=== PATIENT | male | born 1955 | race African-American/Black ===

== ENCOUNTER 2016-02-14 19:38 | Inpatient (IN) | payer MEDICAID ==
[~2016-02-14] VITALS: Ht 180.3 cm; Wt 61.0 kg
[2016-02-14 20:22] LABS: BASOPHILS 0.1 % (0.0-2.0); EOSINOPHILS 0 % (0-7); HEMOGLOBIN 17.1 g/dL (13.5-17.5); IMMATURE GRANULOCYTES 0.1 % (0-5); LYMPHOCYTES 17.3 % (15-50); MCH 32.6 pg (26.0-34.0); MCHC 34.2 g/dL (31.0-37.0); MCV 95.4 fL (80.0-100.0); MEAN PLATELET VOLUME 10.1 fL (7.4-10.4); MONOCYTES 10.9 % (2-11); NEUTROPHILS 71.6 % (40-80); PLATELET COUNT 306 10x3/uL (130-400); RBC 5.24 10x6/uL (4.20-6.10); RDW 13.3 % (11.5-14.5); WBC 8.6 10x3/uL (4.8-10.8)
[2016-02-14 20:26] LABS: APTT 27.1 SECONDS (22.8-39.4); INR 1.08 (0.85-1.17); PROTIME 13.9 SECONDS (11.6-15.0)
[2016-02-14 20:30] LABS: ALBUMIN 3.9 g/dL (3.4-5.0); ANION GAP 16.8 mmol/L (8-16); BILIRUBIN - TOTAL 0.66 mg/dL (0.2-1.3); CALCIUM 9.8 mg/dL (8.5-10.1); CARBON DIOXIDE 26.9 mmol/L (21.0-32.0); CREATININE - SERUM 1.2 mg/dL (0.6-1.3); POTASSIUM - SERUM 4.7 mmol/L (3.5-5.1); PROTEIN - SERUM 8.4 g/dL (6.4-8.2)
[2016-02-14 20:37] LABS: MAGNESIUM - SERUM 2.3 mg/dL (1.8-2.4)
[2016-02-14 22:35] LABS: APPEARANCE CLEAR (CLEAR); BILIRUBIN NEGATIVE (NEGATIVE); COLOR DK YELLOW (YELLOW); GLUCOSE NEGATIVE (NEGATIVE); KETONE SMALL mg/dL (NEGATIVE); LEUKOCYTE ESTERASE NEGATIVE (NEGATIVE); NITRITE NEGATIVE (NEGATIVE); PROTEIN TRACE mg/dL (NEGATIVE); SPECIFIC GRAVITY 1.025 (1.005-1.020); UROBILINOGEN NORMAL (NORMAL)
--- NOTE | 2016-02-15 00:15 | NUR ---
PT ARRIVED ON FLOOR PER STRETCHER FROM ER AT 2345. ALERT/NONVERBAL. TOTAL ASSIST TO TRANSFER FROM STRETCHER TO BED. ACCOMPANIED BY MULTIPLE STAFF. VALLEJO PATENT TO BEDSIDE BAG. PIV TO LFA WITH D5NS @ 75ML/HR AND 1 BANANA BAG TO FINISH FROM ER. ADMISSION ASSESSMENT AND HISTORY COMPLETED. FAMILY CANNOT PROVIDE ANY BACKGROUND DETAILS FOR PT'S MEDICAL HISTORY, EXCEPT THAT HE IS A HEAVY, DAILY DRINKER. PLAN OF CARE INITIATED.
--- NOTE | 2016-02-15 01:00 | NUR ---
REPORT RECIEVED FROM ER THAT THEY TRIED SEVERAL TIMES TO REACH DR SEXTON FROM ER AND HAD NO RETURN CALLS. HOLLY TROUBLE DISPATCHER NOTIFIED AND SAID FOR MED2 TO ATTEMPT AGAIN IN AM.
[2016-02-15 01:03] VITALS: BP 148/93; BMI 26.5
[2016-02-15 02:28] VITALS: BP 154/99
--- NOTE | 2016-02-15 08:06 | NUR ---
INTRODUCED MYSELF TO PT PRIMARY RN FOR TODAYS SHIFT. PT HAS A L.FA PIV PATENT WITH DRSG CDI SWAB CAPS IN USE. CURRENTLY INFUSING D51/2NS @75ML/HR AND BANANA BAG @75ML/HR. PT HAS VALLEJO IN PLACE HANGING TO GRAVITY OFF L.SIDE OF BED, STAT LOC SECURED TO L.INNER THIGH. URINE COLOR HAS PINK TINGE. APPLIED SCDS BILAT. PT HAS WEAK SETTLEMENT PROCESSOR IN L.HAND AND ABLE TO FOLLOW SIMPLE COMMANDS AND LIFT LEFT LEG, HOWEVER R.SIDE COMPLETELY FLACCID. AT BEDSIDE ASSESSING NEURO. PT NONVERBAL, NO CURRENT NEEDS IDENTIFIED AT THIS TIME. WILL CTM.
[2016-02-15 08:10] VITALS: BP 141/89
[2016-02-15 10:44] VITALS: Ht 180.3 cm; Wt 61.0 kg
[2016-02-15 12:14] VITALS: BP 106/76
--- NOTE | 2016-02-15 13:00 | NUR ---
ADDITIONAL INFORMATION COLLECTED FROM FAMILY. ---> BROTHER (ASIF) [phone] SISTER (JUAN ALBERTO) [phone] BROTHER () [phone]. PASSWORD CHOSEN BY OLDEST SIBLING JUAN ALBERTO "[place]" PT IS A VERY HEAVY DRINKER SUN UP TO SUN DOWN, (GIN) AND BEER. PT CURRENT HEAVY SMOKER AT LEAST A PACK A DAY. PT HAS CHRONIC BACK PAIN AND RECIEVES PAIN SHOTS EVERY 3-6 MONTHS FROM . TREATS HTN WITH BP MEDS WHICH PT IS APPARENTLY NONCOMPLIANT HOWEVER BP HAS BEEN STABLE. PT OTHERWISE SEEMS HEALTHY NO PAST MEDICAL HX OF ANY OTHER ISSUES. NUTRITION APPEARS WELL PT IS SEEMINGLY HEALTHY WEIGHT AND LIVES ALONE TAKING CARE OF HIMSELF. WILL CONTINUE TO GATHER MUCH INFORMATION POSSIBLE THROUGHOUT MY SHIFT.
[2016-02-15 14:53] LABS: CHOL - HDL RATIO 3.3 ratio (2.3-4.9)
--- NOTE | 2016-02-15 14:55 | NUR ---
Is the patient Alert and Oriented? No 0 * How many steps to enter\exit or inside your home? UNKNOWN 0 * PCP DR. RODRIGUES 0 * Pharmacy [facility] 0 * Preadmission Environment Home Alone 0 * ADLs Independent 0 * Equipment None 0 * List name and contact numbers for known caregivers / representatives who currently or will assist patient after discharge: SISTER: JUAN ALBERTO RODRIGUEZ [phone] SISTER: MARIAM BARON [phone] 0 * Community resources currently utilized None 0 * Additional services required to return to the preadmission environment? Yes 0 * Can the patient safely return to the preadmission environment? No 0 * Has this patient been hospitalized within the prior 30 days at any hospital? No PATIENT IS UNABLE TO ANSWER QUESTIONS. HIS SISTERS ARE AT THE BEDSIDE. HIS PCP IS DR. RODRIGUES. HE GETS HIS MEDS FROM [facility]. HIS SISTERS STATE HE HAS NEVER HAD HOME HEALTH AND DOES NOT HAVE ANY EQUIPMENT. THERE ARE 6 STEPS TO ENTER HIS APARTMENT. PATIENT MAY NEED REHAB AT DISCHARGE. HIS SISTERS WOULD LIKE REFERRAL TO [facility]AB FOR ACUTE REHAB. IF HE DOES NOT QUALIFY THEY WOULD LIKE SNF FOR REHAB. CM TO FOLLOW.
--- NOTE | 2016-02-15 15:41 | NUR ---
ADMINISTERED ORDERED ASA SUPPOSITORY PTS R.SIDE STILL COMPLETELY FLACCID. PT IS STILL NONVERBAL. OBEYS SOME COMMANDS AND SEEMS TO COMPREHEND SOME SIMPLE COMMANDS OF GRIPPING HIS L.HAND. NO FAMILY PRESENT. REPOSITIONED PT UP IN BED FOR COMFORT. PT HAS VALLEJO PATENT DRAINGING TO COLLECTION BAG OFF L.SIDE OF BED. STAT LOC IN PLACE TO L.INNER THIGH. NO CURRENT NEEDS IDENTIFIED AT THIS TIME. CL IN REACH, BED IN LOWEST, SIDE RAILS X2, DOOR LEFT OPEN AND BUILT IN BED ALARM ON. WILL CPOC.
[2016-02-15 15:54] VITALS: BP 116/87
[2016-02-15 20:00] VITALS: BP 132/85
--- NOTE | 2016-02-15 23:27 | NUR ---
RECIVED ORDER FROM ANTONIO RUST FOR BANNANA BAG AND RATE AT 30ML/HR. BANNANA BAG MIXED UP BY SAVANNAH LOPEZ RN 1MG FOLIC ACID,10ML MULTI VITAMINS 2G MAGNESIUM 100MG THIAMINE ADMIN IN NS 1000CC BAG AND INFUSING AT 30ML/HR NO DISTRESS OBSERVED AT THIS TIME
[2016-02-16] VITALS: BP 140/91
--- NOTE | 2016-02-16 03:20 | NUR ---
PT ASSESSMENT COMLETED AND BEDSIDE SHIFT REPORT RECIVED. PT LAYING IN BED AND IS NON VERBAL PIV INFUSING FLUIDS ORDERED. PT ABLE TO COMMUNICATE THROUGH HAND SQUEEZING ONE YES TWO NO. RESPERATIONS EVEN AND UNLABORED ON ROOM AIR SRX2 BED LOW AND LOCKED WILL MONITOR
[2016-02-16 08:12] VITALS: BP 135/94
[2016-02-16 12:03] VITALS: BP 125/80
[2016-02-16 12:56] LABS: HEMOGLOBIN A1C 5.8 % (4.8-6.0)
[2016-02-16 14:03] LABS: T4 THYROXINE 7.3 ug/dL (4.7-13.3); THYROID STIMULATING HORMONE 1.86 uIU/mL (0.36-3.74)
--- NOTE | 2016-02-16 14:17 | NUR ---
DISCONNECTED PT FROM IV FLUIDS FOR CT TO TAKE HIM TO SCAN. VISITORS AT BEDSIDE. PT RESTING QUIETLY. NO S/S OF DISTRESS OR ANY CURRENT NEEDS. WILL CTM.
--- NOTE | 2016-02-16 15:28 | NUR ---
Rehab Note- Prescreen Order received. The patient has [employer] Insurance & does not have IRF benefits. Thank you for this referral! Tori Arechiga RN Clinical Liaison, [facility]
[2016-02-16 16:22] VITALS: BP 138/96
--- NOTE | 2016-02-16 20:00 | NUR ---
RESTING IN BED. NONVERBAL. WILL FOLLOW NURSE INTENTLY, BUT ATTEMPTS TO COMMUNICATE BY ASKING HIM TO NOD OR SQUEEZE NURSE HAND ARE NOT FOLLOWED. RESPS EVEN/NONLABORED. YONI PATENT TO BEDSIDE DRAIN BAG. IVF D5NS @ 75ML/HR AND BANANA BAG AT 75ML/HR TO LFA. PT CLEAN/DRY AND HAS GOOD SKIN TURGOR. SIDERAILS UP AND CALL LIGHT IN REACH.
[2016-02-16 21:48] VITALS: BP 156/96
[2016-02-17 00:30] VITALS: BP 141/93
--- NOTE | 2016-02-17 02:19 | NUR ---
PT RESTLESS, DOWN IN THE BED. STILL UNABLE TO COMMUNICATE WITH NURSE. PULLED UP /REPOSITIONED AND WITH HEAD OF BED AT 90 DEGREES, PT TOOK A LIBRIUM AND DRANK AN ENTIRE GLASS OF WATER. HIS VALLEJO IS PATENT AND HIS URINE IS BRISA COLOR. WILL INCREASE PO FLUIDS HE CAN TOLERATE.
[2016-02-17 04:30] VITALS: BP 149/99
--- NOTE | 2016-02-17 07:35 | NUR ---
ASSESSMENT DONE. WITHOUT DISTRESS NOTED .
[2016-02-17 08:01] VITALS: BP 147/94
--- NOTE | 2016-02-17 09:43 | NUR ---
IV PATENT. VALLEJO INTACT. CALL LIGHT IN REACH. WILL CONT. PLAN OF CARE.
[2016-02-17 12:00] VITALS: BP 150/101
[2016-02-17 14:00] VITALS: BP 163/108
--- NOTE | 2016-02-17 16:56 | NUR ---
WITHOUT CHANGES OR DISTRESS NOTED AT THIS TIME.
--- NOTE | 2016-02-17 19:03 | NUR ---
LAYING IN BED, AWAKE AND ALERT, NONVERBAL, SKIN WARM AND DRY, RESP UNLABORED, IV PATENT TO LEFT FOREARM, VALLEJO DRAINING TO GRAVITY, FAMILY MEMBER AT BEDSIDE, NO DISTRESS NOTED
[2016-02-17 20:30] VITALS: BP 164/99
--- NOTE | 2016-02-17 23:25 | NUR ---
BUSINESS SERVICES MANAGER AT BEDSIDE TO OBTAIN VITALS, CALL LIGHT IN REACH. WILL CONTINUE WITH PLAN OF CARE.
[2016-02-18 00:30] VITALS: BP 150/103
[2016-02-18 04:30] VITALS: BP 155/105
--- NOTE | 2016-02-18 06:18 | NUR ---
RESTING QUIETLY IN BED, NO CHANGES NOTED
[2016-02-18 06:31] LABS: BASOPHILS 0.4 % (0.0-2.0); EOSINOPHILS 2.4 % (0-7); HEMATOCRIT 44.5 % (42.0-54.0); IMMATURE GRANULOCYTES 0.3 % (0-5); LYMPHOCYTES 26.5 % (15-50); MCH 31.9 pg (26.0-34.0); MCHC 33.7 g/dL (31.0-37.0); MCV 94.7 fL (80.0-100.0); MEAN PLATELET VOLUME 10.3 fL (7.4-10.4); MONOCYTES 15.2 % (2-11); NEUTROPHILS 55.2 % (40-80); PLATELET COUNT 295 10x3/uL (130-400); RDW 12.4 % (11.5-14.5); WBC 7.8 10x3/uL (4.8-10.8)
[2016-02-18 06:52] LABS: CALC OSMOLALITY 278 mosm/kg (275-300); CALCIUM 8.8 mg/dL (8.5-10.1); CHLORIDE - SERUM 105 mmol/L (98-107); CREATININE - SERUM 0.9 mg/dL (0.6-1.3); GLUCOSE 105 mg/dL (74-106); SODIUM 141 mmol/L (136-145); UREA NITROGEN 7 mg/dL (7-18); eGFR NON AFRICAN AMERICAN > 90 mL/min (90-120)
--- NOTE | 2016-02-18 06:55 | NUR ---
RECEIVED REPORT FROM PHARMACY CUSTOMER CARE SPECIALIST NURSE, ELAINE CAPPS. PT IN BED, PARALEGAL SPECIALIST'S AT BEDSIDE TO CHANGE LINEN. PT IN BED, DENIES ANY NEEDS AT THIS TIME. CALL LIGHT IN REACH, NAD NOTED, WILL CONTINUE TO MONITOR.
[2016-02-18 08:00] VITALS: BP 131/93
--- NOTE | 2016-02-18 08:56 | NUR ---
NEW BAG OF FLUIDS HUNG, SUPP TYLENOL ADMINISTERED ORDER. SET UP BREAKFAST FOR PT TO EAT. PT HAVING A LITTLE TROUBLE FOLLOWING COMMANDS. PT IS NON VEBAL. NAD NOTED, CALL LIGHT IN REACH, WILL CONTINUE TO MONITOR.
--- NOTE | 2016-02-18 11:43 | NUR ---
ADMINSITERED PLAVIX ORDER, PT UP TO CHAIR. BOX ALARM ON, PT DENIES ANY NEEDS AT THIS TIME. CALL LIGHT IN REACH, NAD NOTED, WILL CONTINUE TO MONITOR.
[2016-02-18 12:00] VITALS: BP 126/89
--- NOTE | 2016-02-18 12:41 | NUR ---
Nutrition follow-up: Diet: Regular puree with thin liquids PO Intake 100% of meals; pt is a feeder. Labs reviewed Wt:158# Banana bag running @ 75 ml/hr Pt with good po intake at this time. RDN following.
--- NOTE | 2016-02-18 13:08 | NUR ---
Patient Name: DALIA HILL Encounter No: [id number] : 1955 Primary Insurance: [place] PRIVATE OPTIONS EMILI Anticipated DC Date: Planned Disposition: Inpatient Rehab Facility External Planned Provider: [facility] INPATIENT REHAB DCP follow-up note: CM RECEIVED ORDER FOR INPATIENT REHAB PRESCREEN, ATTEMPTED TO SPEAK TO PT WHO WOULD ONLY LOOK AT CM. CM ENCOURAGED PT TO AT LEAST GIVE CM A THUMBS UP OR DOWN TO ANSWER QUESTIONS, HE DID NOT. CM REVIEWED CHART WHICH INDICATED THAT RN-CM EVERRIGHT HAD MET WITH PT/FAMILY LAST WEEK AND FAMILY INDICATED CHOICE OF INPATIENT REHAB AT [facility] AND DID NOT WANT TO CONSIDER LONG TERM FACILITY FOR REHAB UNLESS DENIED FOR INPATIENT AT [facility]. CM CALLED KRISH, NURSE LIAISON FOR [facility], , PROVIDED REFERRAL INFORMATION, FAXED REFERRAL TO [phone]. CM WAITING ADMISSION DETERMINATION FROM [facility] INPATIENT REH[facility]. Guy Hopkins, CASE MANAGEMENT
[2016-02-18 16:00] VITALS: BP 174/111
--- NOTE | 2016-02-18 19:03 | NUR ---
VOMITING LARGE AMOUNTS OF UNDIGESTED FOOD, BED BATH GIVEN WITH LINEN CHANGE, HOB ELEVATED, IV PATENT TO LEFT FOREARM, RIGHT SIDE FLACCID, LEFT WIDE WTIH NOTABLE WEAKNESS, NONVERBAL, SIDE RAILS UP X3, BED ALARM IN USE, WILL MONITOR
[2016-02-18 21:27] VITALS: BP 151/100
[2016-02-19] VITALS: BP 149/97
[2016-02-19 04:00] VITALS: BP 140/99
--- NOTE | 2016-02-19 04:54 | NUR ---
PT LAYING IN BED NO DISTRESS OBSERVED CALL LIGHT IN REACH SRX2 BED LOW AND LOCKED SRX2 WILL MONITOR
--- NOTE | 2016-02-19 05:00 | NUR ---
RESTING QUIETLY IN BED, NO DISTRESS NOTED
[2016-02-19 05:59] LABS: BASOPHILS 0.4 % (0.0-2.0); EOSINOPHILS 2.7 % (0-7); HEMATOCRIT 41.9 % (42.0-54.0); HEMOGLOBIN 14.5 g/dL (13.5-17.5); IMMATURE GRANULOCYTES 0.4 % (0-5); LYMPHOCYTES 27.5 % (15-50); MCH 32.2 pg (26.0-34.0); MCHC 34.6 g/dL (31.0-37.0); MCV 92.9 fL (80.0-100.0); MEAN PLATELET VOLUME 9.7 fL (7.4-10.4); MONOCYTES 10.9 % (2-11); NEUTROPHILS 58.1 % (40-80); PLATELET COUNT 301 10x3/uL (130-400); RBC 4.51 10x6/uL (4.20-6.10); RDW 12.4 % (11.5-14.5); WBC 7.4 10x3/uL (4.8-10.8)
[2016-02-19 06:24] LABS: CALC OSMOLALITY 277 mosm/kg (275-300); CALCIUM 8.8 mg/dL (8.5-10.1); CARBON DIOXIDE 24.1 mmol/L (21.0-32.0); CHLORIDE - SERUM 105 mmol/L (98-107); GLUCOSE 109 mg/dL (74-106); POTASSIUM - SERUM 3.9 mmol/L (3.5-5.1); SODIUM 140 mmol/L (136-145); UREA NITROGEN 7 mg/dL (7-18); eGFR NON AFRICAN AMERICAN 81 mL/min (90-120)
--- NOTE | 2016-02-19 07:15 | NUR ---
RECIEVED REPORT ON PATIENT, PATIENT IS NON VERBAL AT THIS TIME. PATIENT AROUSES TO VOICE. PATIENT R SIDE IS FLACCID AND PATIENT HAS L SIDED WEAKNESS. PER JOHNSON FACE PAIN SCALE PATIENT DOES NOT SEEM TO BE IN PAIN. PATIENT HAS A L FA IV WITH D5 1/2 NS INFUSING AT 75ML/HR. PATIENT IS SR ON MONITOR WITH A RATE OF 93. BED IS LOW AND LOCKED AT THIS TIME. BED ALARM ON. WILL CONT TO MONITOR PATIENT. CPOC
[2016-02-19 08:07] VITALS: BP 119/83
[2016-02-19 08:20] LABS: T3 - FREE 1.9 pg/mL (2.0-4.4)
--- NOTE | 2016-02-19 09:30 | NUR ---
PATIENT FAMILY IS AT BEDSIDE WITH PATIENT, MORNING MEDICATIONS HAVE BEEN GIVEN WITH NO SIGNS OF ASPIRATION NOTED. FAMILY DENIES ANY NEEDS. ASSESSMENT DONE. WILL CONT TO MONITOR PATIENT. CPOC
--- NOTE | 2016-02-19 10:59 | NUR ---
PHYSCIAL THERPY GOT PATIENT UP TO CHAIR. PATIENT AT BEDSIDE. DENIES ANY NEEDS. CPOC
[2016-02-19 12:14] VITALS: BP 135/82
--- NOTE | 2016-02-19 12:30 | NUR ---
AUDIOPROSTHOLOGIST AT BEDSIDE FEEDING PATIENT LUNCH. CPOC
--- NOTE | 2016-02-19 13:06 | NUR ---
OT NOTE: PT MORE ALERT TODAY. MAKING ATTEMPTS TO RECIPROCATE GUESTURES. PT WAS ABLE TO SHAKE HAND WITH L SIDE. YES/NO QUESTIONS ARE STILL INCONSISTENT; PROM TO R UE, REMAINS FLACID. UNABLE TO FOLLOW SIMPLE COMMAND INCLUDING "HOLD UP 2 FINGERS", ETC
--- NOTE | 2016-02-19 15:16 | NUR ---
PATIENT LAYING IN BED, NAD NOTED AT THIS TIME. FAMILY AT BEDSIDE. DENIES ANY NEEDS. WILL CONT TO MONITOR PATIENT, CPOC
[2016-02-19 15:45] VITALS: BP 131/86
--- NOTE | 2016-02-19 17:20 | NUR ---
Patient Name: DALIA HILL Admission Status: ER Accout number: [id number] Admission Date: 02-14-2016 : 1955 Admission Diagnosis:CEREBRAL INFARCTION, UNSPECIFIED Attending: BARRY Current LOS: 5 Anticipated DC Date: Planned Disposition: [facility] FACILITY Primary Insurance: [place] PRIVATE OPTIONS EMILI PLANNED PROVIDER: TO BE DETERMINED Discharge Planning Comments: CM RECEIVED CALL FROM KRISH, NURSE LIAISON FOR [facility], , [facility] WILL NOT ACCEPT PT AND CANNOT MEET PT'S NEEDS. CM INFORMED PT AND CALLED PT'S SISTER, JUAN ALBERTO RODRIGUEZ, , DISCUSSED INPATIENT REHAB OPTIONS WELL [facility] OPTIONS. JUAN ALBERTO DOES NOT WANT PT SENT OUT OF [place] AND WILL REVIEW LIST LEFT BY CM IN PT'S ROOM TONIGHT DURING HER VISIT WITH PT AND LET CM KNOW HER SELECTIONS FOR [facility]AB REFERRALS. CM NOTIFIED PT AND LEFT SNF LISTING ON WINDOW LEDGE IN ROOM FOR FAMILY REVIEW AND SIGNATURE. CM WAITING FAMILY SELECTIONS FOR [facility] RE[facility], CM SHOULD HAVE SELECTIONS FOR REFERRALS TO BE SENT IN THE MORNING, 02-20-16. Machine Stemmer: Guy Hopkins
--- NOTE | 2016-02-19 17:30 | NUR ---
SALES ENABLEMENT CONSULTANT AT BEDSIDE FEEDING PATIENT, PATIENT BED LOW AND LOCKED. CALL LIGHT IN REACH. WILL CONT TO MONITOR PATIENT
[2016-02-19 19:00] VITALS: BP 154/60
--- NOTE | 2016-02-19 19:23 | NUR ---
RECEIVED REPORT, PT SLEEPING, IV-LFA-D5 NS@75, [id number], CALL LIGHT IN REACH, BED LOW, SRX2, BOX ALARM ATTACH
--- NOTE | 2016-02-19 20:06 | NUR ---
GAVE PT COMPLETE BEDBATH AND LINEN CHANGE
[2016-02-20 01:10] VITALS: BP 144/79
--- NOTE | 2016-02-20 01:13 | NUR ---
PT LAYING IN BED EYES CLOSED PT APPERS TO BE SLEEPING NO DISTRESS OBSERVED AT THIS TIME BED LOW AND LOCKED SRX2 CALL LIGHT INR EACH WILL MONITOR
[2016-02-20 04:00] VITALS: BP 156/70
[2016-02-20 06:39] LABS: BASOPHILS 0.6 % (0.0-2.0); EOSINOPHILS 3.9 % (0-7); HEMATOCRIT 40.1 % (42.0-54.0); HEMOGLOBIN 13.5 g/dL (13.5-17.5); IMMATURE GRANULOCYTES 0.3 % (0-5); LYMPHOCYTES 32.2 % (15-50); MCH 31.1 pg (26.0-34.0); MCHC 33.7 g/dL (31.0-37.0); MCV 92.4 fL (80.0-100.0); MEAN PLATELET VOLUME 9.7 fL (7.4-10.4); MONOCYTES 13.5 % (2-11); NEUTROPHILS 49.5 % (40-80); PLATELET COUNT 317 10x3/uL (130-400); RBC 4.34 10x6/uL (4.20-6.10); RDW 12.4 % (11.5-14.5)
[2016-02-20 06:52] LABS: CALC OSMOLALITY 271 mosm/kg (275-300); CALCIUM 8.1 mg/dL (8.5-10.1); CARBON DIOXIDE 24.7 mmol/L (21.0-32.0); CHLORIDE - SERUM 104 mmol/L (98-107); GLUCOSE 103 mg/dL (74-106); POTASSIUM - SERUM 3.6 mmol/L (3.5-5.1); SODIUM 137 mmol/L (136-145); UREA NITROGEN 7 mg/dL (7-18); eGFR NON AFRICAN AMERICAN 81 mL/min (90-120)
--- NOTE | 2016-02-20 07:09 | NUR ---
RECIEVED REPORT ON PATIENT, PATIENT IS ALERT AT THIS TIME. PATIENT IS NON VERBAL BUT IS ANSWERING QUESTIONS BY SHAKING HEAD YES AND NO. PATIENT HAS A L FA IV WITH D5 1/2 NS AT 75ML/HR. PATIENT IS SR ON MONITOR WITH A RATE OF 84. PATIENT BED IS LOW AND LOCKED AT THIS TIME. BOX ALARM IS ON. CALL LIGHT IN REACH. WILL CONT TO MONITOR PATIENT. CPOC
--- NOTE | 2016-02-20 07:19 | NUR ---
RECIEVED REPORT ON PATIENT, PATIENT IS ALERT AT THIS TIME. PATIENT HAS A HX OF A RECENT CVA. PATIENT IN NON VERBAL AT THIS TIME. L SIDED WEKANESS IS NOTED AND R SIDE IS FLACCID. PATIENT IS SR ON MONITOR WITH A RATE OF 84. PATIENT HAS A L FA IV WITH D 5 1/2 NS INFUSING AT 75ML/HR. PATIENT WILL SHAKE HEAD YES AND NO, HE SHAKES HIS HEAD NO AND DENIES ANY NEEDS. WILL CONT TO MONITOR PATIENT. CALL LIGHT IN REACH, BED LOW AND LOCKED. CPOC
[2016-02-20 08:12] VITALS: BP 134/99
--- NOTE | 2016-02-20 10:49 | NUR ---
PHYSICAL THERAPY WORKING WITH PATIENT, PATIENT SITTING UP IN CHAIR. CPOC
--- NOTE | 2016-02-20 11:45 | NUR ---
SPEECH THERAPY AT BEDSIDE WORKING WITH PATIENT. CPOC
[2016-02-20 12:04] VITALS: BP 123/76
--- NOTE | 2016-02-20 13:00 | NUR ---
PATIENT SITTING UP IN BED, FAMILY AT BEDSIDE. DENIES ANY NEEDS. PATIENT SHAKES HEAD NO TO NEEDING ANYTHING. WILL CONT TO MONITOR PATIENT. CPOC
--- NOTE | 2016-02-20 14:45 | NUR ---
Patient Name: DALIA HILL Admission Status: ER Accout number: [id number] Admission Date: 02-14-2016 : 1955 Admission Diagnosis:CEREBRAL INFARCTION, UNSPECIFIED Attending: BARRY Current LOS: 6 Anticipated DC Date: Planned Disposition: [facility] Facility Primary Insurance: [place] PRIVATE OPTIONS EMILI PLANNED EXTERNAL PROVIDER: HELGA HAGEN, SKILLED REHAB BED Discharge Planning Comments: CM MET WITH JUAN ALBERTO MICHAEL, PT'S SISTER, IN ROOM WITH PT. CM REVIEWED LONG-TERM LISTING WITH JUAN ALBERTO WHO SELECTED [facility] FIRST CHOICE AND [facility] SECOND CHOICE. CHOICE LETTER SIGNED. MARY SPOKE TO LORETTA, CLINICAL LIAISON FOR [facility], , PROVIDED REFERRAL INFORMATION. CM FAXED REFERRAL TO LORETTA AT [phone]. LORETTA ARRIVED AT HOSPITAL AFTER LUNCH TO MEET AND EVALUATE PT FOR REHAB ADMISSION. MARY WAITING ADMISSION DETERMINATION FROM [facility] FOR REHAB SERVICES. Packaging Supervisor: Guy Hopkins
--- NOTE | 2016-02-20 14:47 | NUR ---
OT NOTE: PT REMAINS APHASIC WITH NO VERBAL CHANGES NOTED. PT WITH CONTINUED FLACID R UE. YES/NO RESPONSES ARE STILL INCONSISTENT
--- NOTE | 2016-02-20 16:00 | NUR ---
PATIENT SLEEPING AT THIS TIME, NAD NOTED. CHEST RISES AND FALLS EQUALLY. WILL CONT TO MONITOR PATIENT. BED LOW AND LOCKED. BOX ALARM ON. CPOC
[2016-02-20 16:25] VITALS: BP 142/89
--- NOTE | 2016-02-20 18:00 | NUR ---
RISK MANAGEMENT INTERNSHIP AT BEDSIDE ASSITING IN FEEDING PATIENT. BED LOW AND LOCKED. CPOC
--- NOTE | 2016-02-20 19:25 | NUR ---
RECEIVED REPORT, PT LYING GURU IN BED, IV-LFA-D 5 02/10 @ 75, 02-RA, CALL LIGHT IN REACH, BED IS LOW, SRX2, [id number], WILL CONTINUE TO MONITOR
[2016-02-20 20:00] VITALS: BP 146/98
--- NOTE | 2016-02-20 21:14 | NUR ---
ASSISTED THRILL PERFORMER WITH TOTAL BATH/LINEN CHANGED
[2016-02-21] VITALS: BP 165/99
--- NOTE | 2016-02-21 02:26 | NUR ---
LYING IN BED WITH CALL LIGHT IN REACH. WILL CONTINUE WITH PLAN OF CARE.
[2016-02-21 04:00] VITALS: BP 145/65
--- NOTE | 2016-02-21 05:11 | NUR ---
SLEEPING, CALL LIGHT IN REACH, BOX ALARM ATTACH,BED LOW, SRX2
[2016-02-21 06:37] LABS: BASOPHILS 0.2 % (0.0-2.0); EOSINOPHILS 2.4 % (0-7); HEMATOCRIT 42.3 % (42.0-54.0); HEMOGLOBIN 14.3 g/dL (13.5-17.5); IMMATURE GRANULOCYTES 0.2 % (0-5); LYMPHOCYTES 27.1 % (15-50); MCH 31.4 pg (26.0-34.0); MCHC 33.8 g/dL (31.0-37.0); MEAN PLATELET VOLUME 9.7 fL (7.4-10.4); MONOCYTES 12.2 % (2-11); NEUTROPHILS 57.9 % (40-80); PLATELET COUNT 346 10x3/uL (130-400); RBC 4.55 10x6/uL (4.20-6.10); RDW 12.3 % (11.5-14.5); WBC 8.3 10x3/uL (4.8-10.8)
[2016-02-21 07:05] LABS: CALC OSMOLALITY 276 mosm/kg (275-300); CALCIUM 8.8 mg/dL (8.5-10.1); CARBON DIOXIDE 24.4 mmol/L (21.0-32.0); CHLORIDE - SERUM 107 mmol/L (98-107); GLUCOSE 98 mg/dL (74-106); POTASSIUM - SERUM 4.3 mmol/L (3.5-5.1); SODIUM 140 mmol/L (136-145); UREA NITROGEN 8 mg/dL (7-18); eGFR NON AFRICAN AMERICAN 81 mL/min (90-120)
--- NOTE | 2016-02-21 07:48 | NUR ---
PT SITTING UP IN BED SLEEPING NO S/S DISTRESS NOTED. WILL CONTINUE TO MONITOR.
[2016-02-21 08:43] VITALS: BP 149/99
--- NOTE | 2016-02-21 11:57 | NUR ---
PT THREW UP EVERYWHERE IN ROOM. THERAPY GOT PT UP TO CHAIR AND I AM UNSURE IF THAT MADE HIS STOMACH UPSET OR NOT.. ASKED ANTONIO FOR ZOFRAN SHE GAVE OK. ORDERED AND GIVEN. CLEANED UP PT AND PT ROOM. PT CLEAN AND DRY.
[2016-02-21 12:11] VITALS: BP 140/92
--- NOTE | 2016-02-21 13:20 | NUR ---
PT PIV IN LEFT FA INFILTRATED DC WITH CATHETER TIP INTACT. RESITED TO LEFT AC 22G X1 STICK. INFUSING IV FLUIDS WITH NO PROBLEMS.
--- NOTE | 2016-02-21 15:59 | NUR ---
PT SITTING UP IN BED NO S/S DISTRESS NOTED. WILL CONTINUE TO MONITOR.
[2016-02-21 16:00] VITALS: BP 124/91
--- NOTE | 2016-02-21 16:44 | NUR ---
OT NOTE: PT SEEN FOR PROM . HE IS EXHIBITING INCREASED TONE IN R UE, [place]A SHOULDER AND ELBOW. GENTLE PROM. PT REMAINS NON VERBAL AND UNABLE TO FOLLOW VERBAL COMMANDS
--- NOTE | 2016-02-21 19:30 | NUR ---
RESUMED CARE OF PT, [id number] FACIAL EXPRESSION, HAS Bree VALLEJO SIDE FLACCID, ON RA, IV-LAC-D5 1/2 NS@ 75, [id number], CALL LIGHT IN REACH, BED IS LOW, SRX2, WILL CONTINUE TO MONITOR
[2016-02-21 20:00] VITALS: BP 153/100
--- NOTE | 2016-02-21 20:33 | NUR ---
PT VOMITED EVERY WHERE, GAVE TOTAL BATH/BED, GAVE ZOFRAN, WILL CONTINUE TO MONITOR
[2016-02-22] VITALS: BP 136/98
[2016-02-22 04:00] VITALS: BP 129/89
--- NOTE | 2016-02-22 05:03 | NUR ---
CALL LIGHT IN REACH, WILL CONTINUE WITH PLAN OF CARE.
--- NOTE | 2016-02-22 06:19 | NUR ---
RESTING , CALL LIGHT IN REACH, BED IS LOW, SRX2
[2016-02-22 06:50] LABS: BASOPHILS 0.4 % (0.0-2.0); EOSINOPHILS 2.9 % (0-7); HEMATOCRIT 41.2 % (42.0-54.0); HEMOGLOBIN 13.9 g/dL (13.5-17.5); IMMATURE GRANULOCYTES 0.3 % (0-5); LYMPHOCYTES 34.5 % (15-50); MCH 31.6 pg (26.0-34.0); MCHC 33.7 g/dL (31.0-37.0); MCV 93.6 fL (80.0-100.0); MEAN PLATELET VOLUME 9.5 fL (7.4-10.4); MONOCYTES 12.9 % (2-11); PLATELET COUNT 400 10x3/uL (130-400); RDW 12.4 % (11.5-14.5); WBC 6.8 10x3/uL (4.8-10.8)
[2016-02-22 07:32] LABS: CALC OSMOLALITY 277 mosm/kg (275-300); CALCIUM 8.4 mg/dL (8.5-10.1); CARBON DIOXIDE 25.7 mmol/L (21.0-32.0); CHLORIDE - SERUM 105 mmol/L (98-107); GLUCOSE 108 mg/dL (74-106); POTASSIUM - SERUM 3.7 mmol/L (3.5-5.1); SODIUM 140 mmol/L (136-145); UREA NITROGEN 8 mg/dL (7-18); eGFR NON AFRICAN AMERICAN 81 mL/min (90-120)
[2016-02-22 08:55] VITALS: BP 132/96
--- NOTE | 2016-02-22 11:11 | EC ---
PATIENT:DALIA HILL DATE OF SERVICE: 02/14/16 SEX: M MEDICAL RECORD: [id number] DATE OF : [birth year] LOCATION:D.M2 D.212 AGE OF PATIENT: 60 ADMISSION DATE: 02/14/16 REFERRING PHYSICIAN: INTERPRETING PHYSICIAN: DENNY LARSON MD ECHOCARDIOGRAM REPORT ECHO CHARGES 4 ECHO COMPLETE CLINICAL DIAGNOSIS: R MCA INFARCT ASSESS FOR CLOTS ECHOCARDIOGRAPHIC MEASUREMENTS (adult normal given) AC root (d.<3.7cm) 3.6 LV Septum d (<1.2 cm> 1.3 Valve Excursion 1.5 LV Septum (systole) 1.5 Left Atria (s.<4.0cm> 3.6 LVPW d(<1.2cm) 1.0 RV (d.<2.3cm) 2.9 LVPW (sytole) 1.3 LV diastole(<5.6CM) 4.0 MV E-F(>70mm/sec) LV systole 2.6 LVOT Diameter 1.9 MV exc.(>10mm) 1.5 Est.ejection fraction (50-75%) Pericardial Effusion N DOPPLER: LVIT A 65.0 E 56.0 LA RVSP 25 LVOT 97 AOP1/2T Asc. Ao 109 RVOT RA PA AV Gradient Peak 4.8 AV Mean 3.11 AV Area 2.3 MV Gradient Peak 2.0 MV Mean 0.84 MV Area COMMENTS: Correspondence Renew Clerk: Mg SMITH Wood Bucker:Marquez Larson TAPE# PACS DATE OF SERVICE: 02/15/2016 Echocardiogram FINDINGS: 1. Left ventricular chamber size is within normal limits. Left ventricular systolic function is normal. Overall ejection fraction estimated at 55%. 2. Left atrium, right atrium, right ventricle chamber size is within normal limits. Left atrium measures 3.6 cm. 3. Valvular structures have normal structure and motion. ECHOCARDIOGRAM REPORT [id number] DALIA HILL 4. Doppler interrogation only reveals mild tricuspid regurgitation. No other valvular insufficiency or stenosis. Pulmonary systolic pressure is normal estimated at 25 mmHg. 5. No evidence of pericardial effusion or left ventricular thrombus. TRANSINT:[id number] Voice Confirmation ID: [id number] DOCUMENT ID: [id number] DENNY LARSON MD at 1111 CC: [id number] DICTATION DATE: 02/15/16 1157 BASIC COMBATANT SWIMMER: 02/15/16 1246 ADM IN [place] [id number] [id number]
[2016-02-22 12:16] VITALS: BP 137/90
--- NOTE | 2016-02-22 12:32 | NUR ---
Nutrition follow-up: Diet: Regular puree with thin liquids Pt remains nonverbal at this time. PO intake ~75% of meals -> pt has been vomiting yesterday and today Labs reviewed +BM Wt: 158# Waiting placement in Rehab Will continue to provide food choices and honor food preferences within diet restrictions. RDN following.
--- NOTE | 2016-02-22 15:38 | NUR ---
HUNG NEW BAG OF D5 1/2NS INFUSING VIA L.AC PIV WITH DRSG CDI AND SWAB CAPS IN USE. INFUSING @75ML/HR. PT IS RESTING QUIETLY WATCHING TV. RR NONLABORED ON RA. NO S/S OF DISTRESS OR ANY FURTHER NEEDS NOTED AT THIS TIME. CL IN REACH. WILL CPOC.
[2016-02-22 16:56] VITALS: BP 143/98
--- NOTE | 2016-02-22 17:42 | NUR ---
Patient Name: DALIA HILL Encounter No: [id number] : 1955 Primary Insurance: [employer] [place] PRIVATE OPTIONS EMILI Anticipated DC Date: Planned Disposition: [facility] Facility External Planned Provider: HELGA HAGEN SKILLED REHAB BED DCP follow-up note: CM SPOKE TO LORETTA, CLINICAL LIAISON FOR [facility], , WHO ADVISED [facility] IS EV[facility]ATING PT AND WILL CONTACT INSURANCE FOR AUTHORIZATION. CM RECEIVED CALL FROM SHANELLE BURGOS, PT'S INSURANCE PAID SEARCH MARKETING ANALYST WHO REPORTED SHE HAS RECEIVED REQUEST FOR AUTHORIZATION FROM [facility] AND ASKED CM IF PT'S FAMILY HAS CONSIDERED PLACING PT AT [facility] FOR INPATIENT REHAB. CM EXPLAINED THAT CM HAD SPOKEN TO MS. RODRIGUEZ, PT'S SISTER IN ROOM WITH PT AND IT IS CM'S UNDERSTANDING THAT FAMILY WANTS TO KEEP PT IN [place] FOR REHAB SERVICES. SHANELLE BURGOS INFORMED CM THAT SHE HAS A MESSAGE TO MS. RODRIGUEZ AND IS WAITING ON A RETURN CALL. CM WAITING ADMISSION DETERMINATION FROM [facility] FOR REHAB SERVICES WELL INSURANCE AUTHORIZATION FROM PT'S INSURANCE COMPANY. Water Tender: Guy Hopkins
[2016-02-22 20:00] VITALS: BP 139/94
--- NOTE | 2016-02-22 21:10 | NUR ---
REPOSITIONED IN BED FOR COMFORT, BED LOW, SR UP X 2, BED ALARM IN USE.
[2016-02-23] VITALS: BP 133/92
--- NOTE | 2016-02-23 02:06 | NUR ---
PT RESTING WELL WITHOUT C/O OR DISTRESS NOTED. NO NEEDS VOICED. CALL LIGHT WITHIN REACH. WILL CONT TO MONITOR.
[2016-02-23 04:00] VITALS: BP 118/80
--- NOTE | 2016-02-23 07:19 | NUR ---
PT SITTING UP IN BED SLEEPING NO S/S DISTRESS WILL CONTINUE TO MONITOR
[2016-02-23 08:00] VITALS: BP 128/86
[2016-02-23 12:00] VITALS: BP 123/75
[2016-02-23 16:00] VITALS: BP 128/92
--- NOTE | 2016-02-23 18:27 | NUR ---
PT SITTING UP IN BED NO S/S DISTRESS NOTED.
--- NOTE | 2016-02-23 19:38 | NUR ---
RESUMED CARE OF PT, LYING IN BED RESPIRATIONS EVEN AND UNLABORED ON ROOM AIR. 87 SR ON TELEMETRY. LEFT AC INFUSING D5NS @ 75. VALLEJO TO GRAVITY. CALL LIGHT IN REACH. WILL CONTINUE TO MONITOR. SEE NURSE ASSESSMENT.
[2016-02-23 21:13] VITALS: BP 131/87
--- NOTE | 2016-02-23 21:49 | NUR ---
BED BATH AND LINENS CHANGED. VOMITTED, ZOFRAN 4MG IVP. CALL LIGHT IN REACH. WILL CONTINUE TO MONITOR.
[2016-02-24 00:43] VITALS: BP 127/88
--- NOTE | 2016-02-24 01:12 | NUR ---
LYING IN BED, CALL LIGHT IN REACH. BED ALARM ON. WILL CONTINUE TO MONITOR.
[2016-02-24 05:05] VITALS: BP 129/79
[2016-02-24 08:00] VITALS: BP 134/88
--- NOTE | 2016-02-24 11:00 | NUR ---
ALERT AND ORIENTED X4. USES NONVERBAL COMMUNICATION. PEN AND PAPER BROUGHT TO ROOM. UNABLE TO SPEAK. RT SIDE MINIMAL MOVEMENT. SHAKES HEAD YES TO FEELING WHEN TOUCHED. PT ASSIST TO CHAIR. DENIES SOB OR PAIN. FAMILY AT BEDSIDE. SINUS RHYTHM 78bpm ON TELEMETRY. VALLEJO DRAINING BY GRAVITY. CHAIR LOCKED. CALL LIGHT IN REACH. CONTINUE PLAN OF CARE AND SAFETY PRECAUTION.
[2016-02-24 12:00] VITALS: BP 122/75
--- NOTE | 2016-02-24 15:58 | NUR ---
RESTING IN BED. FAMILY AT BEDSIDE. ABLE TO EXTEND RT ARM. DRESSING PLACED OVER RT ELBOW SORE. DENIES PAIN OR SOB. SINUS RHYTHM ON TELEMETRY. BED LOCKED AND LOW. CALL LIGHT IN REACH. TWO SIDERAILS UP.
[2016-02-24 16:00] VITALS: BP 121/81
[2016-02-24 19:00] VITALS: BP 137/78
--- NOTE | 2016-02-24 19:37 | NUR ---
RESUMED CARE OF PT, LYING QUIETLY IN BED, IV-LAC-D5 NS@ 75, HAS YONI, [id number], CALL LIGHT IN REACH, BED IS LOW, SRX2, BOX ALARM IS ON
--- NOTE | 2016-02-24 20:38 | NUR ---
LATE ENTRY 02/23/16 CM RECEIVED A MESSAGE FROM ANTONIO WOODRUFF APN, THAT PT'S FAMILY WAS AT THE BEDSIDE AND HAD QUESTIONS FOR CM. CM VISITED W/ PATIENT' SISTER, MS RODRIGUEZ, AND OTHER FAMILY MEMBERS AT THE BEDSIDE. MS RODRIGUEZ HAD QUESTIONS REGARDING REFERRALS. SHE WANTED TO KNOW IF REFERRAL HAD BEEN MADE TO [facility]. SHE STATED [facility] WAS HER FIRST CHOICE. CM ADVISED I COULD NOT CONFIRM [facility] HAD BEEN CONSIDERING THIS PATIENT. ADVISED I WOULD COMMUNICATE TO PT'S WEEKDAY CM FOR F/U. CM ALSO ADVISED THAT SHE VISIT BOTH FACILITIES. ADVISED SHE COULD VISIT THE WEEKEND BUT ADMINISTRATIVE STAFF WOULD NOT BE AVAILABLE. CM ALSO ADVISED THAT THE PATIENT'S [employer] OPERATOR HAD LEFT A MSG AND THE SISTER NEEDED TO CONTACT SHANELLE BURGOS BC/BS CM. ADVISED THAT [facility] MAY NOT BE AN IN-NETWORK FACILITY BUT INSURANCE CM COULD ANSWER THAT QUESTION. PLAN IS FOR SISTER TO CONTACT MS BURGOS. SHE ALSO STATED SHE WOULD CONSIDER VISITING FACILITIES. SHE HAD RESEARCHED THE FACILITIES ON THE INTERNET.
[2016-02-25] VITALS: BP 142/86
--- NOTE | 2016-02-25 01:34 | NUR ---
PT SLEEPING, CALL LIGHT IN REACH, BED IS LOW, SRX2, BOX ALARM IS ON
--- NOTE | 2016-02-25 02:38 | NUR ---
LYING IN BED WITH EYES CLOSED, CALL LIGHT IN REACH. WILL CONTINUE WITH PLAN OF CARE.
[2016-02-25 04:00] VITALS: BP 138/79
[2016-02-25 08:00] VITALS: BP 125/81
[2016-02-25 09:05] VITALS: BP 131/89
--- NOTE | 2016-02-25 09:43 | NUR ---
Patient Name: DALIA HILL Encounter No: [id number] : 1955 Primary Insurance: [employer] PRIVATE OPTIONS EMILI Anticipated DC Date: Planned Disposition: Intermediate Facility External Planned Provider: [facility] DCP follow-up note: CM REVIEWED CHART NOTES FROM WEEKEND, FAMILY HAS CHANGED MIND AND WANTS [facility] FIRST CHOICE FOR REHAB. CM CALLED [facility], , SPOKE TO [place] AND PROVIDED REFERRAL INFORMATION, FAXED REFERRAL TO [facility] AT [phone]. CM FAXED UPDATED REFERRAL INFORMATION TO [facility], . CM WAITING ADMISSION DETERMINATION FROM [facility] AND [facility] INSURANCE AUTHORIZATION FROM [employer] PRIVATE OPTION. Guy Hopkins, CASE MANAGEMENT
--- NOTE | 2016-02-25 09:56 | NUR ---
Patient Name: DALIA HILL Encounter No: [id number] : 1955 Primary Insurance: [employer] PRIVATE OPTIONS EMILI Anticipated DC Date: Planned Disposition: [facility] Facility External Planned Provider: [facility], SKILLED REHAB BED DCP follow-up note: CM RECEIVED CALL FROM [place], CLINICAL LIAISON OF [facility]; [facility] HAS ACCEPTED PT AND IS WAITING ON AUTHORIZATION FROM PT'S INSURANCE COMPANY. [facility] HAS ACCEPTED PT; CM WAITING ADMISSION DETERMINATION FROM [facility] INSURANCE AUTHORIZATION FROM [employer] PRIVATE OPTION FOR REHAB SERVICES AT EITHER FACILITY. Guy Hopkins, CASE MANAGEMENT
--- NOTE | 2016-02-25 11:00 | NUR ---
ALERT AND ORIENTED X4. USES NONVERBAL COMMUNICATION. PHYSICAL THERAPY ASSIST OOB TO CHAIR. SINUS RHYTHM 84bpm ON TELEMETRY. LT AC IV INFILTRATED. DC LT AC IV TIP INTACT. DENIES PAIN OR SOB. CHAIR LOCKED. CALL LIGHT IN REACH. CONTINUE PLAN OF CARE AND SAFETY PRECAUTIONS.
[2016-02-25 11:59] VITALS: BP 120/58; BP 126/85
--- NOTE | 2016-02-25 14:48 | NUR ---
Patient Name: DALIA HILL Encounter No: [id number] : 1955 Primary Insurance: [employer] PRIVATE OPTIONS EMILI Anticipated DC Date: Planned Disposition: Long Term Facility External Planned Provider: [facility], SKILLED REHAB BED DCP follow-up note: CM RECEIVED CALL FROM SHANELLE BURGOS, PT'S WELFARE MANAGER WHO REPORTS THAT SHE HAS NEGOTIATED RATE FOR PT'S REHAB AT [facility] AND PT MAY ENTER SNF. CM RECEIVED CALL FROM JOCELIN OF [facility], , WHO REPORTS THEY WILL ACCEPT PT ONCE FAMILY HAS COMPLETED ADMISSION PAPERWORK. CM PROVIDED CELL PHONE NUMBER FOR JUAN ALBERTO RODRIGUEZ, PT'S SISTER, TO JOCELIN. A SHORT TIME LATER, JOCELIN REPORTED SHE HAS CONTACTED JUAN ALBERTO RODRIGUEZ WHO CANNOT SIGN LEGALS UNTIL TOMORROW. JOCELIN WILL CONTINUE TO ENCOURAGE JUAN ALBERTO TO COMPLETE ADMISSION PAPERWORK TODAY, HOWEVER, THE FACILITY MUST HAVE SIGNED ADMISSION PAPERS TO ACCEPT PT. FAMILY PLANS TO SIGN ADMISSION PAPERS ON 02-26-16 FOR PT TO ADMIT TO [facility]. INSURANCE HAS AUTHORIZED REHAB SERVICES AT [facility]. [facility] TO NOTIFY CM WHEN FAMILY COMPLETES ADMISSION PAPERS AND FACILITY CAN ACCEPT. FOR DISCHARGE ON 02-25-15 AFTER FAMILY SIGNS LEGALS, FAX DISCHARGE INFORMATION TO [phone]. NURSE REPORT TO BE CALLED TO [facility] AT [phone]. PT TO TRANSPORT VIA [facility]. Guy Hopkins, CASE MANAGEMENT
--- NOTE | 2016-02-25 15:06 | NUR ---
IV access-#22 introcan inserted in left hand for IV access. Ebony Bill RN
--- NOTE | 2016-02-25 15:34 | NUR ---
RESTING IN BED WATCHING TV. IV RESITE LT H. IV FLUIDS CONTINUED ORDERED. VALLEJO DRAINING BY GRAVITY. TUBING SECURED TO INNER THIGH. DENIES SOB OR PAIN. CONTINUE PLAN OF CARE AND SAFETY PRECAUTIONS.
[2016-02-25 15:46] VITALS: BP 134/87
--- NOTE | 2016-02-25 19:30 | NUR ---
RESUMED CARE OF PT, R.SIDE FLACCID, IV-L.HAND-D5NS @50, [id number], DRESSING TO R.ELBOW, HAS YONI, CALL LIGHT IN REACH, BED IS LOW, SRX2, WILL CONTINUE TO MONITOR
[2016-02-26] VITALS: BP 127/73
--- NOTE | 2016-02-26 02:24 | NUR ---
PT LAYING IN BED NO DISTRESS OBSERVED CALL LIGHT IN REACH SRX2 BED LOW AND LOCKED WILL MONITOR
[2016-02-26 04:00] VITALS: BP 136/97
[2016-02-26 07:46] VITALS: BP 136/90
[2016-02-26] MEDS ORDERED: PLAVIX75 MG PO (11:14)
[2016-02-26] MEDS ORDERED: LISINOPRIL5 MG PO (11:14)
[2016-02-26] MEDS ORDERED: ASPIRIN325 MG PO (11:14)
[2016-02-26] MEDS ORDERED: PRAVASTATIN SOD10 MG PO (11:14)
--- NOTE | 2016-02-26 11:23 | NUR ---
Patient Name: DALIA HILL Encounter No: [id number] : 1955 Primary Insurance: [employer] EMILI Anticipated DC Date: 02-26-2016 Planned Disposition: [facility] Facility External Planned Provider: : [facility], SKILLED REHAB BED DCP follow-up note: CM RECEIVED CALL FROM JOCELIN OF [facility], PT'S SISTER, MRS. RODRIGUEZ HAS SIGNED LEGALS AND IS MEETING WITH JOCELIN NOW; AND THEY ARE READY TO ACCEPT PT NOW. CM SPOKE TO BEDSIDE NURSE WHO ADVISED PT IS SAFE FOR [facility] TRANSPORT TO REHAB. [place] ARR[facility]ED [facility] FOR APPROXIMATELY 1500 TODAY. CM FAXED DISCHARGE INFORMATION TO [facility] AT [phone]. NURSE REPORT TO BE CALLED TO [facility] AT [phone]. [facility] TO FIRE PREVENTION OFFICER PT AT 1500 HOURS TODAY. Guy Hopkins
[2016-02-26 11:37] VITALS: BP 120/84
--- NOTE | 2016-02-26 12:54 | NUR ---
OT NOTE: PERFORMED PROM ON THIS DATE. PT WITH DECREASED TONE NOTED TODAY. MUCH LESS THAN LAST WEEK. PT EASILY RANGED WHILE IN SITTING POSITION. PT REMAINS UNABLE TO COMMUNICATE AND UNABLE TO FOLLOW 1 STEP COMMANDS. NO AROM NOTED AT THIS TIME
--- NOTE | 2016-02-26 16:42 | NUR ---
REPORT CALLED TO LORRAINE AT [facility] [phone]. TRANSPORT VAN ARRIVE. ASSIST IN WHEELCHAIR. REMAIN FREE FROM INJURY.
--- NOTE | 2016-02-27 15:30 | DS ---
PATIENT:DALIA HILL :[birth year] MEDICAL RECORD: [id number] DISCHARGE SUMMARY ADMISSION DATE: 02/14/16 DISCHARGE DATE: 02/26/16 DATE OF ADMISSION: 02/14/2016 DATE OF DISCHARGE: 02/26/2016 ADMITTING DIAGNOSES: 1. Acute cerebrovascular accident. 2. Alcohol abuse. 3. Nicotine dependence with withdrawal. 4. Hypertension. 5. Chronic back pain. HOSPITAL COURSE: This is a patient of Dr. Steward who was admitted with diagnoses as outlined above. Details are well-outlined in the history of the present illness, H&P. All events, lab procedures, diagnostic testing were well documented in the records. The patient was admitted. Dr. Foster was consulted with neurology. His recommendations were followed. He was felt to have a large left MCA infarct clinically, known hypertension. Further workup included echo and EF was 55%, no thrombus. Carotid Dopplers were done. CTA was recommended. CTA angio showed left internal carotid artery with 67% luminal stenosis. Dr. Wetzel was consulted for cardiovascular surgical recommendations. He felt the patient at some point need a left carotid endarterectomy, recommended Plavix for now and will do the CEA further out. Speech therapy was consulted. He had no overt signs and symptoms of aspiration with pureed and thin liquids. He was fed his meals. Low dose SUNITA inhibitor was added for blood pressure control. Rehabilitation was consulted. He is accepted today to [facility]. Today, he is afebrile, vital signs stable, blood pressure 136/90, on sinus rhythm on the monitor. He will be discharged to rehabilitation. Please refer to med rec. Dr. Wetzel is planning a carotid endarterectomy in the future. Greater than 30 minutes was spent on this discharge. DISCHARGE DIAGNOSES: 1. Acute cerebrovascular accident. 2. Alcohol abuse. 3. Nicotine dependence with withdrawal. 4. Hypertension. 5. Left carotid artery disease. TRANSINT:[id number] Voice Confirmation ID: [id number] DOCUMENT ID: [id number] Dictated By: ANTONIO WOODRUFF RN I have interviewed/examined the above patient and agree with these documented findings. DISCHARGE SUMMARY REPORT [id number] DALIA HILL,CONNIE ULRICH at 1530 at 1554 CC: [id number] DICTATION DATE: 02/26/16 1608 COUPLING MACHINE OPERATOR: 02/26/16 190 DIS IN 02/26/16 [facility] [address] [facility] [place], [facility]
== END 2016-02-26 16:43 | DRG 64 ==
LOC: D.ER 19:38 → D.M2 22:34
PROVIDERS: Emergency Medicine; ADMIT Family Medicine Adult Medicine
DX: I63.232 Cerebral infarction due to unspecified occlusion or stenosis of left carotid arteries (principal); R40.2212 Coma scale, best verbal response, none, at arrival to emergency department; F17.203 Nicotine dependence unspecified, with withdrawal; G81.91 Hemiplegia, unspecified affecting right dominant side; R47.01 Aphasia; R53.1 Weakness; F10.10 Alcohol abuse, uncomplicated; R40.2352 Coma scale, best motor response, localizes pain, at arrival to emergency department; R40.2132 Coma scale, eyes open, to sound, at arrival to emergency department

== ENCOUNTER 2016-03-29 03:03 | Inpatient (IN) | payer MEDICAID ==
[2016-03-29] VITALS (8 sets, daily range): BP systolic 98–129; BP diastolic 63–94; Ht 182.9 cm; Wt 76.3 kg
[~2016-03-29] VITALS: Ht 182.9 cm; Wt 76.3 kg
[~2016-03-29 03:03] MED LIST: ASPIRIN325 MG PO; LISINOPRIL5 MG PO; PLAVIX75 MG PO; PRAVASTATIN SOD10 MG PO
[2016-03-29 04:58] LABS: BASOPHILS 0.3 % (0.0-2.0); EOSINOPHILS 0.9 % (0-7); HEMOGLOBIN 14.5 g/dL (13.5-17.5); IMMATURE GRANULOCYTES 0.1 % (0-5); LYMPHOCYTES 29.2 % (15-50); MCHC 33.7 g/dL (31.0-37.0); MCV 91.9 fL (80.0-100.0); NEUTROPHILS 61.5 % (40-80); PLATELET COUNT 355 10x3/uL (130-400); RBC 4.68 10x6/uL (4.20-6.10); RDW 12.6 % (11.5-14.5); WBC 7.8 10x3/uL (4.8-10.8)
[2016-03-29 05:12] LABS: APTT 29.7 SECONDS (22.8-39.4); INR 1.02 (0.85-1.17); PROTIME 13.2 SECONDS (11.6-15.0)
[2016-03-29 05:21] LABS: ALBUMIN 3.3 g/dL (3.4-5.0); ALKALINE PHOSPHATASE 105 U/L (46-116); ALT (SGPT) 43 U/L (10-68); AMYLASE - SERUM 113 U/L (25-115); BILIRUBIN - TOTAL 0.23 mg/dL (0.2-1.3); CALC OSMOLALITY 276 mosm/kg (275-300); CALCIUM 9.5 mg/dL (8.5-10.1); CARBON DIOXIDE 26.5 mmol/L (21.0-32.0); CHLORIDE - SERUM 104 mmol/L (98-107); GLUCOSE 118 mg/dL (74-106); LIPASE 164 U/L (73-393); PROTEIN - SERUM 7.7 g/dL (6.4-8.2); SODIUM 139 mmol/L (136-145); UREA NITROGEN 8 mg/dL (7-18); eGFR NON AFRICAN AMERICAN 81 mL/min (90-120)
[2016-03-29 05:22] LABS: TROPONIN-I < 0.017 ng/mL (0.000-0.060)
--- NOTE | 2016-03-29 08:10 | NUR ---
PT ARRIVED TO UNIT ACCOMPANIED BY HOSPITAL STAFF. HOOKED UP TO ICU MONITORS. VSS. NO FEVER. UNABLE TO ASSESS ORIENTATION BECAUSE PATIENT IS NON-VERBAL. HE DOES NOD HIS HEAD APPROPRAITELY WHEN ASKED YES/NO QUESTIONS. FOLLOWS COMMANDS. PERRLA 4MM BRISK. RIGHT ARM CONTRACTURE. LEFT ARM WEAKNESS. RIGHT LEG FLACCID/STIFF. LEFT LEG WEAKNESS. DOES NOT RESPOND TO STIMULI WHEN TOUCHED ON HIS LEFT SIDE. CLEAR LUNG SOUNDS. ROOM AIR. S1S2 NOTED, RADIAL AND PEDAL PULSES PALP. NSR ON MONITOR. ACTIVE BOWEL SOUNDS X4. INCONTINENT OF URINE, USES BRIEF. ULCER ON RIGHT ELBOW, STAGE II. FOR OTHER ASSESSMENT FINDINGS SEE FLOWSHEET.
--- NOTE | 2016-03-29 09:05 | NUR ---
NO VISITORS AT THIS TIME. PATIENT REFUSED BREAKFAST. NO DIFFICULTY TAKING PILLS.
--- NOTE | 2016-03-29 09:20 | NUR ---
SPOKE WITH DR. BABB ABOUT CONSULT. SAID HE WOULD BE BY LATER. NO VISITORS AT THIS TIME.
[2016-03-29] MEDS ORDERED: VITAMIN B-1100 M1 PO (09:55)
--- NOTE | 2016-03-29 10:15 | NUR ---
DR. MURRAY AT BEDSIDE. NEW ORDERS RECEIVED. PATIENT IS INCONTINENT OF URINE, ASKED DR. MURRAY IF HE WANTED ME TO PUT IN A VALLEJO. HE SAID NO SINCE THE AR DID NOT HAVE ONE FOR HIM.
--- NOTE | 2016-03-29 11:10 | NUR ---
DR. BABB AT BEDSIDE. SAYS PATIENT CAN BE TRANSFERRED TO FLOOR. NO NEW ORDERS.
--- NOTE | 2016-03-29 11:30 | NUR ---
SPOKE WITH DR. MURRAY, SAID PATIENT CAN GO TO FLOOR AND START A DIET
--- NOTE | 2016-03-29 13:43 | NUR ---
FAMILY AT BEDSIDE. UPDATE PROVIDED.
--- NOTE | 2016-03-29 15:30 | NUR ---
FAMILY AT BEDSIDE. UPDATE PROVIDED.
--- NOTE | 2016-03-29 17:15 | NUR ---
RECEIVED TO ROOM 2229 VIA BED FROM ICU. RESPONDS APPROPRIATELY TO YES/NO QUESTIONS WITH HEAD NOD. PATIENT IS NON VERBAL. DENIES NEEDS.
--- NOTE | 2016-03-29 18:04 | NUR ---
ATE ALL OF SUPPER FED PER STAFF. NO CHANGES NOTED. DENIES NEEDS.
--- NOTE | 2016-03-29 20:52 | NUR ---
C/O PAIN WAS MEDICATED WITH APAP # 3 PER ORDERS. C/L IN REACH AT BEDSIDE.
--- NOTE | 2016-03-29 22:24 | NUR ---
PT IS ASLEEP WITH EASY RESPIRATIONS AND NO DISTRESS NOTED. IV INFUSING WITHOUT PROBLEM AND NO O2 ON AT THIS TIME. BED IS LOW, RAILS UP X'S 2 WITH THE CALL LIGHT AT HAND.
[2016-03-30] VITALS: BP 93/63
[2016-03-30 04:00] VITALS: BP 113/79
[2016-03-30 08:04] VITALS: BP 108/81
--- NOTE | 2016-03-30 09:18 | NUR ---
PT. AWAKE AND ALERT IN BED. RESP. EVEN AND NONLABORED LUNG SOUNDS CLEAR BILATERALLY. PT. NONVERBAL, PT. DENIES PAIN AT THIS TIME WITH A SHAKE OF HIS HEAD AND WAVE OF HIS LEFT HAND. SKIN CLEAN DRY AND INTACT WITH NO SIGNS AND SYMPTOMS OF SKIN BREAKDOWN OR REDNESS. WILL CONTINUE TO MONITOR. BED IN LOWEST POSITION AND SRX2 CALL LIGHT WITH IN REACH.
--- NOTE | 2016-03-30 09:26 | HP ---
PATIENT: DALIA HILL MEDICAL RECORD: [id number] ACCOUNT: [id number] LOCATION:[facility] : [birth year] ADMISSION DATE: 03/29/16 HISTORY AND PHYSICAL EXAMINATION HISTORY OF PRESENT ILLNESS: Mr. Hill is a 56-year-old black male, who resides at a local [facility]ci, was found yesterday afternoon, lying by the commode, thought he had fallen. He had no complaints at that time and early this morning, he started complaining of head and neck pain. He is brought to the Emergency Room. A CT of the head reveals encephalomalacia from recent stroke, but also a possible evidence of bleed. His neurosurgery was contacted and he requests that he be admitted to the ICU. He was admitted to our services as a med on-call back in February after suffering an acute stroke with right-sided weakness and alcohol intoxication. He had carotid artery stenosis and was evaluated by Dr. Wetzel, who has tentative plans for carotid endarterectomy when he was 6 weeks out from his stroke. PAST MEDICAL HISTORY: Mr. Hill's past medical history is again significant for hypertension, CVA, carotid artery stenosis, history of tobacco abuse, hypertension, chronic back pain. PAST SURGICAL HISTORY: Previous surgeries had been oral. ALLERGIES: None known. HOME MEDICATIONS: This were at the fci include Plavix 75 mg a day, lisinopril 5 mg a day, pravastatin 10 mg a day, aspirin 325 daily, and thiamine 100 mg daily. FAMILY HISTORY: Noncontributory. SOCIAL HISTORY: Alcohol and tobacco abuse. REVIEW OF SYSTEMS: He is pretty drowsy right now. He received some alprazolam earlier before some of his testing. Nurses report that he was alert prior to receiving sedation. He has a chronic right-sided hemiplegia. PHYSICAL EXAMINATION: HEENT: On physical exam, head is normocephalic. NECK: Soft and supple. HEART: Regular. LUNGS: Clear. ABDOMEN: Soft. EXTREMITIES: Contracture of the right arm. He is wearing a splint on the right leg. He has some contracture of the right leg. IMPRESSION: 1. Fall at fci, reviewed x-rays and x-rays of spine, hip, and shoulder all negative for fracture or dislocation. 2. Old cerebrovascular accident with encephalomalacia with possible signs of new intracerebral hemorrhage, hypertension, hyperlipidemia, and history of alcohol and tobacco abuse. PLAN: Admit to ICU. Neurosurgical consult, hold Plavix and aspirin for now. Await Dr. Recinos's recommendations. See orders for plan. HISTORY AND PHYSICAL [id number] DALIA HILL TRANSINT:[id number] Voice Confirmation ID: [id number] DOCUMENT ID: [id number] QIAN MURRAY DO at 0926 CC: [id number] DICTATION DATE: 03/29/16 1017 SOLUTIONS ANALYST: 03/29/16 1130 ADM IN [facility] [address] [place] [address]
[2016-03-30 12:28] VITALS: BP 96/57
--- NOTE | 2016-03-30 18:11 | NUR ---
Patient was admitted from [facility]. He had been discharged to a skilled bed from [facility] on 02/26/[address] [facility] Troy advised today that he can be discharged back to facility. Late Entry 1500 TC to [facility] regarding discharge order. CM spoke w/ Evita. Transfered to Celeste. Transfered to Casandra. Casandra stated patient could not be accepted back to facility as no RN building repair maintenance supervisor was available to review clinical and approve return. Patient will have to be accepted back on Thursday. MARY notified DR Troy. The contact phone number was not available to contact his sister, Joy Anguiano. Primary nurse to search for phone number to call patient' sister and notify her of the plan.
--- NOTE | 2016-03-30 19:31 | NUR ---
PATIENT' SISTER, JUAN ALBERTO RODRIGUEZ, IS AWARE OF POSSIBLE DISCHARGE BACK TO [facility] THURSDAY. RETURN TO [facility] IS HER PLAN PER PRIMARY NURSE. HER CONTACT PHONE NUMBER IS [phone].
--- NOTE | 2016-03-30 20:35 | NUR ---
PT ASSESMENT COMPLETED ON PT AT THIS TIME PT HAS NO IV AND UNABLE TO ASSESSE IVP AT THIS TIME WILL HOLD IVP DUE TO PT TO BE [facility] IS AWARE THAT NO IVP SITE AVALIABLE AND NO ORDERS RECIVED REGARDING ASSESS. PT NON VERBAL AND APPERS TO BE AWARE OF SITUATION, PLACE, PERSON AND TIME. FAMILY WAS IN ROOM WITH PT AND INQUIERED ABOUT CLOTHES FROM ICU INFORMED PT FAMILY THAT WOULD LOOK IN ICU AND LOST AND FOUND FOR BELONGINGS FAMILY VERBALIZED UNDERSTANDING. RESPERATIONS EVEN AND UNLABORED ON ROOM AIR NO DISTRESS OBSERVED WILL MONITOR
[2016-03-30 21:00] VITALS: BP 107/72
--- NOTE | 2016-03-31 01:06 | NUR ---
PT LAYING IN BED NO DISTRESS OBSERVED PT APPERS TO BE SLEEPING AT THIS TIME CALL LIGHT IN REACH SRX2 BED LOW AND LOCKED WILL MONITOR
[2016-03-31 02:00] VITALS: BP 110/68
[2016-03-31 05:00] VITALS: BP 109/77
--- NOTE | 2016-03-31 07:44 | NUR ---
AWAKE AND ALERT. ORIENTED TO SELF. DIFFICULT TO ASSESS ORIENTATION PATIENT IS NON VERBAL. LUNGS ARE CLEAR BILATERALLY, NO COUGH NOTED. SKIN IS INTACT WITHOUT REDNESS. INCONTINENT OF URINE SKIN CARE PER STAFF, LINENS CHANGED. SCD'S IN PLACE. NO IV ACCESS AT THIS TIME. NO NEEDS NOTED.
[2016-03-31 08:52] VITALS: BP 115/93
--- NOTE | 2016-03-31 09:50 | NUR ---
ATE MOST OF BREAKFAST PER SELF. DENIES NEEDS. NO C/O
--- NOTE | 2016-03-31 11:53 | NUR ---
UP TO BR WITH 2 PERSON MOD ASSIST. HAD LARGE FORMED STOOL. SKIN CARE PER STAFF. INCONTINENT OF URINE. SKIN CARE PER STAFF. LINENS CHANGED.
[2016-03-31 12:32] VITALS: BP 117/81
--- NOTE | 2016-03-31 13:33 | NUR ---
D/C REASSESSMENT NOTE: PATIENT IS D/C TODAY BY FACILITY VAN TO A SKILLED BED AT [facility].
--- NOTE | 2016-03-31 13:53 | NUR ---
ATE ALL OF LUNCH. DENIES NEEDS. REPORT CALLED TO JACKIE TAYLOR LPN AT [facility].
--- NOTE | 2016-03-31 14:38 | NUR ---
DISCHARGED TO [facility] VIA THEIR TRANSPORT.
--- NOTE | 2016-03-31 18:09 | DS ---
PATIENT:DALIA HILL :57 MEDICAL RECORD: [id number] DISCHARGE SUMMARY ADMISSION DATE: 03/29/16 DISCHARGE DATE: 03/31/16 HOSPITAL COURSE: Mr. Hill is a 60-year-old black male [facility] , initially fell between on the , fell in the bathroom that night after midnight he started complaining of pain all over. He had multiple x-rays performed in the Emergency Room of the shoulder, hip, which were negative, had a CT of the thoracic and cervical spine, which showed nothing acute. A CT of the head revealed old stroke with encephalomalacia and possibly an evidence of a bleed versus post CBA changes. He is subsequently admitted for neurosurgical evaluation and seen in consultation by Dr. Recinos on the , based on his stable. Physical exam and reviewing CT that is probably represents calcifications that are occurring post-stroke. He does recommend followup CT in a few weeks, but there is no need for any neurosurgical intervention at this time, the patient is going to be [facility]. We will resume his previous medications. He is supposed to have a followup appointment with Dr. Wetzel about eventual carotid endarterectomy and he needs to have a followup CT in 2 weeks. TRANSINT:[id number] Voice Confirmation ID: [id number] DOCUMENT ID: [id number] CC: [facility]. QIAN MURRAY DO at 1809 CC: [id number] DICTATION DATE: 03/30/16 1309 TESTER ELECTRONIC SCALE: 03/30/16 2206 DIS IN 03/31/16 [place] [id number] [place] [id number]
--- NOTE | 2016-04-21 10:56 | CN ---
PATIENT NAME:DALIA HILL MEDICAL RECORD: [id number] : 57 LOCATION:D.[facility] ADMIT DATE: 03/29/16 ACCOUNT: [id number] CONSULTING PHYSICIAN: HENRY BABB MD REFERRING PHYSICIAN: QIAN MURRAY DO DATE OF CONSULTATION: 03/30/2016 HISTORY OF PRESENT ILLNESS: Mr. Dalia Hill is a 60-year-old -[place] male, who lives in a snf due to consequence of a left side MCA massive stroke. The consequences of that stroke was massive right-sided weakness and aphasia. Recently, he sustained a fall. He was seen at [facility]. A CT scan was done. There was a questionable residual possible calcification, could not rule out bleeding of the posterior part of that ischemic area. On the morning of 03/29/2016, I saw the patient, the primary doctor of this patient is Dr. Murray. The patient was seen and evaluated. He was awake and alert, able to follow commands, baseline on his neuro deficits, and in no distress. Vital signs were stable. He was afebrile, blood pressure is stable. I reviewed the CT with radiology, there was not ____ bleeding to cause any mass effect or midline shift if there was a bleeding. This could be calcification. Due to the fact the patient was very stable, there was no need to repeat a CT. He needs an elective followup in a couple of weeks, but no need for neurosurgical intervention at this admission. Please contact us with any further questions or concerns. TRANSINT:[id number] Voice Confirmation ID: [id number] DOCUMENT ID: [id number] HENRY BABB MD at 1056 CC: [id number] DICTATION DATE: 03/30/16 0939 SETTER AUTOMATIC SPINNING LATHE: 03/30/16 1057 DIS IN 03/31/16 [place] [address]
== END 2016-03-31 14:39 | DRG 605 ==
LOC: D.ER 03:03 → D.MS 07:10 → D.ICU 07:10 → D.MS 17:10
PROVIDERS: Surgery; ADMIT Family Medicine
DX: S40.012A Contusion of left shoulder, initial encounter (principal); I69.351 Hemiplegia and hemiparesis following cerebral infarction affecting right dominant side; I69.398 Other sequelae of cerebral infarction; G93.89 Other specified disorders of brain; I69.320 Aphasia following cerebral infarction; W19.XXXA Unspecified fall, initial encounter; E78.5 Hyperlipidemia, unspecified; Z87.891 Personal history of nicotine dependence

== ENCOUNTER → 2016-04-04 12:49 | Outpatient (CLI) | payer OTHER ==
[2016-03-29 10:54] VITALS: BMI 22.8
[~2016-04-04 12:49] MED LIST changes: +VITAMIN B-1100 M1 PO
== END | disposition home or self-care (01) ==
LOC: D.CT 04-01 09:30
DX: R91.1 Solitary pulmonary nodule (principal)

== ENCOUNTER → 2016-04-14 09:11 | Outpatient (CLI) | payer OTHER ==
[2016-03-29 10:54] VITALS: BMI 22.8
== END | disposition home or self-care (01) ==
LOC: D.CT 09:11
DX: Z91.81 History of falling (principal)

== ENCOUNTER 2016-11-22 20:50 | Emergency (ER) | payer MEDICAID ==
[2016-03-29 10:54] VITALS: BMI 22.8
== END 2016-11-23 00:41 | disposition home or self-care (01) ==
LOC: D.ER 20:50
DX: S00.511A Abrasion of lip, initial encounter (principal); W50.3XXA Accidental bite by another person, initial encounter; Y93.89 Activity, other specified; Y92.129 Unspecified place in nursing home as the place of occurrence of the external cause; I10 Essential (primary) hypertension

== ENCOUNTER 2016-12-19 12:22 | Emergency (ER) | payer MEDICAID ==
[2016-03-29 10:54] VITALS: BMI 22.8
[2016-12-19 14:20] LABS: AMORPHOUS SEDIMENT >1+ /lpf (NONE SEEN); APPEARANCE SLT CLOUDY (CLEAR); BACTERIA MODERATE /hpf (NONE SEEN); BILIRUBIN NEGATIVE (NEGATIVE); COLOR YELLOW (YELLOW); GLUCOSE NEGATIVE (NEGATIVE); KETONE NEGATIVE (NEGATIVE); MUCUS <1+ /lpf (NONE SEEN); NITRITE POSITIVE (NEGATIVE); PROTEIN NEGATIVE (NEGATIVE); RED CELLS - URINE 0-5 /hpf (0-5); UROBILINOGEN NORMAL (NORMAL)
[2016-12-19 14:32] LABS: BASOPHILS 0.1 % (0-2); EOSINOPHILS 0.1 % (0-7); HEMATOCRIT 43.9 % (42.0-54.0); HEMOGLOBIN 14.6 g/dL (13.5-17.5); IMMATURE GRANULOCYTES 0.2 % (0-5); LYMPHOCYTES 20.3 % (15-50); MCH 29.1 pg (26.0-34.0); MCHC 33.3 g/dL (31.0-37.0); MCV 87.6 fL (80.0-100.0); MEAN PLATELET VOLUME 9.1 fL (7.4-10.4); MONOCYTES 9.5 % (2-11); NEUTROPHILS 69.8 % (40-80); RBC 5.01 10x6/uL (4.20-6.10); RDW 14.7 % (11.5-14.5); WBC 9.6 10x3/uL (4.8-10.8)
[2016-12-19 14:36] LABS: PLATELET COUNT 278 10x3/uL (130-400)
[2016-12-19 14:47] LABS: ALBUMIN 3.1 g/dL (3.4-5.0); ALKALINE PHOSPHATASE 113 U/L (46-116); ALT (SGPT) 42 U/L (10-68); AMYLASE - SERUM 103 U/L (25-115); BILIRUBIN - TOTAL 0.26 mg/dL (0.2-1.3); CALC OSMOLALITY 277 mosm/kg (275-300); CALCIUM 7.8 mg/dL (8.5-10.1); CARBON DIOXIDE 24.4 mmol/L (21.0-32.0); CHLORIDE - SERUM 106 mmol/L (98-107); GLUCOSE 97 mg/dL (74-106); LIPASE 118 U/L (73-393); POTASSIUM - SERUM 3.7 mmol/L (3.5-5.1); SODIUM 140 mmol/L (136-145); UREA NITROGEN 9 mg/dL (7-18); eGFR NON AFRICAN AMERICAN 81 mL/min (90-120)
[2016-12-27 20:07] LABS: AEROBE ID Final report (())
== END 2016-12-19 15:36 | disposition home or self-care (01) ==
LOC: D.ER 12:22
PROVIDERS: Emergency Medicine
DX: N39.0 Urinary tract infection, site not specified (principal); I10 Essential (primary) hypertension

== ENCOUNTER 2017-03-18 19:23 | Inpatient (IN) | payer MEDICAID ==
[~2017-03-18] VITALS: Ht 182.9 cm; Wt 86.2 kg
[2017-03-18 20:34] LABS: BASOPHILS 0.1 % (0-2); EOSINOPHILS 0 % (0-7); HEMATOCRIT 49.1 % (42.0-54.0); HEMOGLOBIN 16.7 g/dL (13.5-17.5); IMMATURE GRANULOCYTES 0.3 % (0-5); LYMPHOCYTES 8.7 % (15-50); MCH 29.5 pg (26.0-34.0); MCV 86.7 fL (80.0-100.0); MEAN PLATELET VOLUME 9.2 fL (7.4-10.4); MONOCYTES 5.2 % (2-11); NEUTROPHILS 85.7 % (40-80); PLATELET COUNT 322 10x3/uL (130-400); RBC 5.66 10x6/uL (4.20-6.10); RDW 14.5 % (11.5-14.5); WBC 11.7 10x3/uL (4.8-10.8)
[2017-03-18 20:41] LABS: COLOR YELLOW (YELLOW)
[2017-03-18 20:42] LABS: APPEARANCE CLEAR (CLEAR); BACTERIA FEW /hpf (NONE SEEN); BILIRUBIN NEGATIVE (NEGATIVE); GLUCOSE NEGATIVE (NEGATIVE); KETONE SMALL mg/dL (NEGATIVE); NITRITE NEGATIVE (NEGATIVE); PROTEIN 2+ mg/dL (NEGATIVE); RED CELLS - URINE 0-5 /hpf (0-5); UROBILINOGEN NORMAL (NORMAL); WHITE CELLS - URINE 0-5 /hpf (0-5)
[2017-03-18 20:43] LABS: SPERMATOZOA PRESENT /hpf (NONE SEEN)
[2017-03-18 21:08] LABS: ALBUMIN 3.9 g/dL (3.4-5.0); ANION GAP 19.9 mmol/L (8-16); BILIRUBIN - TOTAL 0.27 mg/dL (0.2-1.3); CALCIUM 9.7 mg/dL (8.5-10.1); CREATININE - SERUM 2.2 mg/dL (0.6-1.3); POTASSIUM - SERUM 3.9 mmol/L (3.5-5.1); PROTEIN - SERUM 8.3 g/dL (6.4-8.2)
[2017-03-18 21:19] LABS: MAGNESIUM - SERUM 3.7 mg/dL (1.8-2.4)
[2017-03-19] MEDS ORDERED: CELEXA20 MG PO (05:43)
[2017-03-19] MEDS ORDERED: LISINOPRIL2.5 MG PO (05:44)
[2017-03-19] MEDS ORDERED: ULTRAM50 MG PO (05:46)
[2017-03-19] MEDS ORDERED: BACLOFEN10 MG PO (05:46)
[2017-03-19] MEDS ORDERED: VOLTAREN100 GM TOPICAL ×2 (05:47→05:48)
[2017-03-19 06:06] LABS: BASOPHILS 0.1 % (0-2); EOSINOPHILS 0 % (0-7); HEMATOCRIT 43.9 % (42.0-54.0); IMMATURE GRANULOCYTES 0.1 % (0-5); MCH 29.4 pg (26.0-34.0); MCHC 34.2 g/dL (31.0-37.0); MCV 86.1 fL (80.0-100.0); MEAN PLATELET VOLUME 9.2 fL (7.4-10.4); MONOCYTES 6.5 % (2-11); NEUTROPHILS 85.3 % (40-80); PLATELET COUNT 304 10x3/uL (130-400); RDW 14.9 % (11.5-14.5); WBC 14.5 10x3/uL (4.8-10.8)
[2017-03-19 06:30] LABS: ANION GAP 19.7 mmol/L (8-16); CALCIUM 8.6 mg/dL (8.5-10.1); CARBON DIOXIDE 19.7 mmol/L (21.0-32.0); CREATININE - SERUM 2.1 mg/dL (0.6-1.3); POTASSIUM - SERUM 4.4 mmol/L (3.5-5.1)
[2017-03-19 07:27] VITALS: BP 130/81; BMI 25.8
[2017-03-19 07:52] VITALS: BP 126/79
[2017-03-19 10:48] LABS: HEMATOCRIT 43.8 % (42.0-54.0)
[2017-03-19 12:11] VITALS: BP 121/73
[2017-03-19 13:38] VITALS: BMI 25.7
[2017-03-19 15:51] VITALS: BP 115/76
[2017-03-19 16:24] VITALS: Ht 182.9 cm; Wt 86.2 kg
== END 2017-03-19 17:34 | disposition short-term general hospital (02) | DRG 100 ==
LOC: D.ER 19:23 → D.SDCHOLD 23:19 → D.MS 23:19
PROVIDERS: Family Medicine
DX: R56.9 Unspecified convulsions (principal); J18.9 Pneumonia, unspecified organism; F17.203 Nicotine dependence unspecified, with withdrawal; N17.9 Acute kidney failure, unspecified; K92.0 Hematemesis; I69.351 Hemiplegia and hemiparesis following cerebral infarction affecting right dominant side; I25.10 Atherosclerotic heart disease of native coronary artery without angina pectoris; I10 Essential (primary) hypertension; E86.0 Dehydration; F10.10 Alcohol abuse, uncomplicated